=== PATIENT | male | born 1950 | race Caucasian/White ===

== ENCOUNTER 2020-10-30 10:51 | Outpatient (CLI) | payer MEDICARE, OTHER, SELFPAY ==
[2020-10-30 11:42] LABS: Hemoglobin A1C 5.7 % (<5.7)
[2020-10-30 11:55] LABS: Alanine Aminotransferase 25 U/L (4-50); Albumin Level 4.2 g/dL (3.5-5.1); Alkaline Phosphatase 59 U/L (38-126); Anion Gap 4 mmol/L (8-16); Aspartate Amino Transferase 27 U/L (17-59); Bilirubin,Total 0.9 mg/dL (0.2-1.3); Blood Urea Nitrogen 25 mg/dL (9-20); Calcium 9.4 mg/dL (8.4-10.2); Carbon Dioxide 30 mmol/L (22-30); Chloride 105 mmol/L (98-107); Cholesterol 199 mg/dL (0-200); Estimated Glomerular Filt Rate > 60; Glucose 114 mg/dL (75-110); HDL Direct 45 mg/dL; Potassium 4.6 mmol/L (3.4-5.0); Sodium 139 mmol/L (137-145); Triglycerides 183 mg/dL (<150)
[2020-10-30 12:06] LABS: LDL Cholesterol Direct 117 mg/dL
== END 2020-10-30 10:52 | disposition home or self-care (01) ==
PROVIDERS: PCP Internal Medicine; Visit Provider Physician Assistant
DX: E11.9 Type 2 diabetes mellitus without complications (principal)
CPT/HCPCS: 36415; 80053; 80061; 83036

== ENCOUNTER 2021-04-19 09:43 | Outpatient (CLI) | payer MEDICARE, OTHER, SELFPAY ==
[2021-04-19 10:02] LABS: Hematocrit 41.5 % (42.0-52.0); Hemoglobin 13.3 g/dL (14.0-18.0); Mean Corpuscular Hemoglobin 30.5 pg (26-34); Mean Corpuscular Volume 95.2 fl (80-100); Mean Platelet Volume 9.5 fl (7.4-10.4); Platelet Count Result 243 k/mm3 (150-375); Red Blood Count 4.36 M/mm3 (4.6-6.20); Red Cell Distribution Width 13.1 % (11.5-14.5); White Blood Count 5.9 K/mm3 (4.5-10.0)
[2021-04-19 10:14] LABS: Magnesium 1.7 mg/dL (1.6-2.3)
[2021-04-19 10:47] LABS: Prostate Specific Antigen 0.7 ng/mL (< OR = 4.0)
[2021-04-19 11:21] LABS: Folic Acid 11.4 ng/mL (2.76->20)
== END 2021-04-19 09:44 | disposition home or self-care (01) ==
PROVIDERS: PCP Physician Assistant; Visit Provider Physician Assistant
DX: R53.83 Other fatigue (principal); I10 Essential (primary) hypertension; Z12.5 Encounter for screening for malignant neoplasm of prostate
CPT/HCPCS: 36415; 82607; 82746; 83735; 84153; 84443; 85027; G0103

== ENCOUNTER → 2021-09-21 00:23 | Outpatient (CLI) | payer MEDICARE, OTHER, SELFPAY ==
[2021-09-22 16:52] LABS: SARS-CoV-2 RNA PCR Negative
== END ==
PROVIDERS: PCP Physician Assistant; Visit Provider Physician Assistant
DX: R09.89 Other specified symptoms and signs involving the circulatory and respiratory systems (principal); Z20.822 Contact with and (suspected) exposure to COVID-19
CPT/HCPCS: C9803; U0003; U0005

== ENCOUNTER 2022-04-24 08:40 | Outpatient (CLI) | payer MEDICARE, OTHER, SELFPAY ==
[2022-04-24 09:47] LABS: Hematocrit 42.8 % (42.0-52.0); Mean Corpuscular HGB Conc 32.7 g/dl (32-36); Mean Corpuscular Hemoglobin 31.3 pg (26-34); Mean Corpuscular Volume 95.5 fl (80-100); Mean Platelet Volume 9.5 fl (7.4-10.4); Platelet Count Result 275 k/mm3 (150-375); Red Blood Count 4.48 M/mm3 (4.6-6.20); Red Cell Distribution Width 13.6 % (11.5-14.5); White Blood Count 6.6 K/mm3 (4.5-10.0)
[2022-04-24 09:59] LABS: Hemoglobin A1C 5.7 % (<5.7)
[2022-04-24 10:02] LABS: Alanine Aminotransferase 24 U/L (6-50); Albumin Level 4.4 g/dL (3.5-5.1); Alkaline Phosphatase 69 U/L (38-126); Anion Gap 10 mmol/L (8-16); Aspartate Amino Transferase 24 U/L (17-59); Bilirubin,Total 0.9 mg/dL (0.2-1.3); Blood Urea Nitrogen 25 mg/dL (9-20); Calcium 9.3 mg/dL (8.4-10.2); Carbon Dioxide 24 mmol/L (22-30); Chloride 102 mmol/L (98-107); Cholesterol 183 mg/dL (0-200); Estimated Glomerular Filt Rate > 60; Glucose 119 mg/dL (65-110); HDL Direct 38 mg/dL; Potassium 4.4 mmol/L (3.4-5.0); Sodium 136 mmol/L (137-145); Triglycerides 225 mg/dL (<150)
[2022-04-24 10:14] LABS: LDL Cholesterol Direct 90 mg/dL
[2022-04-24 10:23] LABS: Creatinine Urine 187.8 mg/dL
[2022-04-24 10:28] LABS: Microalbumin Urine Random 16.9 mg/L (0-16.7)
[2022-04-24 10:33] LABS: Prostate Specific Antigen 0.8 ng/mL (< OR = 4.0)
[2022-04-24 11:08] LABS: Folic Acid 14.4 ng/mL (2.76->20)
== END 2022-04-24 08:41 | disposition home or self-care (01) ==
LOC: ANHLAB 08:42
PROVIDERS: PCP Physician Assistant; Visit Provider Physician Assistant
DX: Z12.5 Encounter for screening for malignant neoplasm of prostate (principal); E11.9 Type 2 diabetes mellitus without complications; R53.83 Other fatigue
CPT/HCPCS: 36415; 80053; 80061; 82043; 82607; 82746; 83036; 84153; 84443; 85027; G0103

== ENCOUNTER 2022-07-18 00:13 | Day surgery (SDC) | payer MEDICARE, OTHER, SELFPAY ==
[2022-07-04 13:51] VITALS: BMI 41.1
--- NOTE | 2022-07-18 06:17 | PM.HPGS ---
History of Present Illness History of Present Illness Consent: Risks, benefits, and alternatives have been discussed and questions answered. Patient agrees to proceed with procedure. Chief complaint: family hx of colon ca Narrative: Leo Miller is a 71 year old male For colon cancer screening. His father had colon cancer. Review of Systems Review of Systems: All systems reviewed & are unremarkable except as noted in HPI and below PMFSH Family History Family History Father Patient's father is Family history of renal cell carcinoma Sibling Carcinoma of colon Family history of renal cell carcinoma Mother Family history of malignant neoplasm of uterus Social History Social History Smoking packs per day: 1 Smoking cigarettes per day: 20.0 Years smoked: 37 Smoking pack-years: 37.00 Smoking status: Former smoker Tobacco type: cigarettes Second hand tobacco smoke exposure: No Alcohol intake: never Substance use type: does not use Living arrangements: with family Spiritual care concerns: No Meds Home Medications and Allergies Home Medications Medication Instructions Recorded Confirmed Type loratadine 10 mg tablet (Claritin) 10 mg PO DAILY 11/03/19 07/04/22 History lisinopril 20 mg tablet 20 mg PO DAILY #90 tabs 10/30/21 07/04/22 Rx metformin 500 mg tablet,extended 500 mg PO DAILY #90 tabs 10/30/21 07/04/22 Rx release 24 hr sertraline 50 mg tablet 50 mg PO DAILY #90 tabs 10/30/21 07/04/22 Rx atorvastatin 40 mg tablet 40 mg PO DAILY #90 tabs 05/02/22 07/04/22 Rx Allergies Allergy/AdvReac Type Severity Reaction Status Date / Time No Known Allergies Allergy Verified 07/18/22 06:22 Exam Const: General: alert Orientation/consciousness: patient oriented x3 Resp: Auscultation: clear to auscultation bilaterally Cardio: Rhythm: regular rhythm GI: GI Palp: Yes Soft to palpation and No Tenderness to palpation present (GI) Neuro: General: patient oriented x3 Assessment and Plan Assessment and plan (1) Colon cancer screening: Code(s): Z12.11 - Encounter for screening for malignant neoplasm of colon Status: Acute Assessment and Plan: Colonoscopy with possible biopsy or polypectomy or cautery or injection of substances.
[2022-07-18 06:23] VITALS: BP 152/78; PULSE 62; RESP 18; TEMP 36.3; O2SAT 99; BMI 39.8
[2022-07-18] MEDS: LACTATED RINGERS 1,000 ML 150 ML IV CONT (06:36)
[2022-07-18 06:42] LABS: Glucose Point of Care 107 mg/dl (65-105)
--- NOTE | 2022-07-18 07:17 | P.PNAN_ITS ---
Anes - Initial Pre Proc Eval Procedure: Operation Date: 07/18/22 07:30 Proposed Procedures p Screening Colonoscopy - Clif Peña MD Date/Time: 07/18/22 07:17 Surgeon: Clif Peña MD Pre Op Diagnosis: family hx of colon ca Patient Data Age: 71 Gender: M Height: 1.78 m Weight: 126 kg Last Vital Signs Temp 97.3 F L 07/18/22 06:23 Pulse 62 07/18/22 06:23 Resp 18 07/18/22 06:23 BP 152/78 H 07/18/22 06:23 Pulse Ox 99 07/18/22 06:23 O2 Del Method Room Air 07/18/22 06:23 Allergies Allergy/AdvReac Type Severity Reaction Status Date / Time No Known Allergies Allergy Verified 07/18/22 06:22 Home Medications Medication Instructions Recorded Confirmed Type loratadine 10 mg tablet (Claritin) 10 mg PO DAILY 11/03/19 07/04/22 History lisinopril 20 mg tablet 20 mg PO DAILY #90 tabs 10/30/21 07/04/22 Rx metformin 500 mg tablet,extended 500 mg PO DAILY #90 tabs 10/30/21 07/04/22 Rx release 24 hr sertraline 50 mg tablet 50 mg PO DAILY #90 tabs 10/30/21 07/04/22 Rx atorvastatin 40 mg tablet 40 mg PO DAILY #90 tabs 05/02/22 07/04/22 Rx Laboratory Tests 07/18/22 06:39 POC Capillary Glucose 107 mg/dl H mg/dl (65-105) Patient hx anesthesia problems: none Family hx anesthesia problems: none Results Review: All pre-operative results and documents have been reviewed as part of the pre- operative evaluation. [facility] Family History Family History Father Patient's father is Family history of renal cell carcinoma Sibling Carcinoma of colon Family history of renal cell carcinoma Mother Family history of malignant neoplasm of uterus Social History Social History Smoking packs per day: 1 Smoking cigarettes per day: 20.0 Years smoked: 37 Smoking pack-years: 37.00 Smoking status: Former smoker Tobacco type: cigarettes Second hand tobacco smoke exposure: No Alcohol intake: never Substance use type: does not use Living arrangements: with family Spiritual care concerns: No Anes - Eval Final PreProcedure Day of Procedure 07/18/22 07:17 Patient weight: morbidly obese Heart: regular rate and rhythm Lungs: clear to auscultation Airway: Mallampati scale class II Neurological: alert and oriented Last oral intake: >/= 8 hours ASA classification: III Emergent: no Anesthetic plan: proceed Anesthesia type and monitoring: general GIVS and standard monitoring Results Review: All pre-operative results and documents have been reviewed as part of the pre- operative evaluation. Informed Consent: The patient's anesthetic plan and its attendant risks and benefits were discussed with the patient/family/POA. Questions were solicited and answers provided to the satisfaction of the patient/family/POA.
[2022-07-18 07:47] VITALS: BP 101/63; PULSE 55; RESP 18; O2SAT 95
[2022-07-18 07:57] VITALS: BP 113/69; PULSE 52; RESP 15; O2SAT 96
[2022-07-18 08:07] VITALS: BP 139/72; PULSE 53; RESP 22; O2SAT 97
== END 2022-07-18 08:21 | disposition home or self-care (01) ==
PROVIDERS: PCP Physician Assistant; Visit Provider Internal Medicine Gastroenterology
PROC: 0DJD8ZZ Inspection of Lower Intestinal Tract, Via Natural or Artificial Opening Endoscopic (ICD-10-PCS; CPT 45378; principal; 2022-07-18 07:30)
DX: Z12.11 Encounter for screening for malignant neoplasm of colon (principal); K57.30 Diverticulosis of large intestine without perforation or abscess without bleeding; D12.3 Benign neoplasm of transverse colon; D12.5 Benign neoplasm of sigmoid colon; Z80.0 Family history of malignant neoplasm of digestive organs; Z79.84 Long term (current) use of oral hypoglycemic drugs; Z87.891 Personal history of nicotine dependence; E66.01 Morbid (severe) obesity due to excess calories; Z68.39 Body mass index [BMI] 39.0-39.9, adult
CPT/HCPCS: 45385; 82948; 88305; J2704; J7120

== ENCOUNTER 2023-05-01 10:18 | Outpatient (CLI) | payer MEDICARE, OTHER, SELFPAY ==
[2023-05-01 10:42] LABS: Basophils Percent Auto 0.5 % (0.2-1.2); Eosinophils Absolute Auto 0.1 K/mm3 (0-0.3); Hematocrit 42.9 % (42.0-52.0); Hemoglobin 13.9 g/dL (14.0-18.0); Immature Granulocyte Absolute 0.01 K/mm3 (0.00-0.031); Immature Granulocyte Percent A 0.2 % (0-0.5); Lymphocytes Absolute Auto 1.74 K/mm3 (0.9-3.2); Lymphocytes Percent Auto 29.5 % (18.3-44.2); Mean Corpuscular HGB Conc 32.4 g/dl (32-36); Mean Corpuscular Volume 95.5 fl (80-100); Mean Platelet Volume 9.4 fl (7.4-10.4); Monocytes Absolute Auto 0.6 K/mm3 (0.1-0.6); Neutrophils Absolute Auto 3.4 K/mm3 (1.3-6.7); Neutrophils Percent Auto 57.8 % (45.5-73.1); Platelet Count Result 249 k/mm3 (150-375); Red Blood Count 4.49 M/mm3 (4.6-6.20); Red Cell Distribution Width 13.1 % (11.5-14.5); White Blood Count 5.9 K/mm3 (4.5-10.0)
[2023-05-01 11:15] LABS: Alanine Aminotransferase 28 U/L (6-50); Albumin Level 4.4 g/dL (3.5-5.1); Alkaline Phosphatase 65 U/L (38-126); Anion Gap 7 mmol/L (8-16); Aspartate Amino Transferase 28 U/L (17-59); Bilirubin,Total 0.9 mg/dL (0.2-1.3); Blood Urea Nitrogen 25 mg/dL (9-20); Calcium 9.1 mg/dL (8.4-10.2); Carbon Dioxide 24 mmol/L (22-30); Chloride 106 mmol/L (98-107); Cholesterol 188 mg/dL (0-200); Estimated Glomerular Filt Rate > 60; Glucose 121 mg/dL (65-110); HDL Direct 38 mg/dL; Potassium 4.1 mmol/L (3.4-5.0); Sodium 137 mmol/L (137-145); Triglycerides 177 mg/dL (<150)
[2023-05-01 11:27] LABS: LDL Cholesterol Direct 108 mg/dL
[2023-05-01 11:43] LABS: Prostate Specific Antigen 0.7 ng/mL (< OR = 4.0)
[2023-05-01 12:18] LABS: Folic Acid 13.7 ng/mL (2.76->20)
[2023-05-01 12:29] LABS: MALB Creatinine Ratio 3.7 mg/g (0-30); Microalbumin Urine Random 6.9 mg/L (0-16.7)
== END 2023-05-01 10:19 | disposition home or self-care (01) ==
PROVIDERS: PCP Physician Assistant; Visit Provider Physician Assistant
DX: Z12.5 Encounter for screening for malignant neoplasm of prostate (principal); R53.83 Other fatigue; E11.9 Type 2 diabetes mellitus without complications
CPT/HCPCS: 36415; 80053; 80061; 82043; 82607; 82746; 83036; 84153; 84443; 85025; G0103

== ENCOUNTER 2024-05-04 11:12 | Outpatient (CLI) | payer MEDICARE, OTHER, SELFPAY ==
[2024-05-04 11:44] LABS: Basophils Percent Auto 0.7 % (0.2-1.2); Eosinophils Absolute Auto 0.1 K/mm3 (0-0.3); Eosinophils Percent Auto 1.6 % (0-4.4); Hematocrit 41.7 % (42.0-52.0); Hemoglobin 13.7 g/dL (14.0-18.0); Immature Granulocyte Absolute 0.02 K/mm3 (0.00-0.031); Immature Granulocyte Percent A 0.3 % (0-0.5); Lymphocytes Absolute Auto 1.82 K/mm3 (0.9-3.2); Lymphocytes Percent Auto 29.8 % (18.3-44.2); Mean Corpuscular HGB Conc 32.9 g/dl (32-36); Mean Corpuscular Hemoglobin 31.4 pg (26-34); Mean Corpuscular Volume 95.6 fl (80-100); Mean Platelet Volume 9.7 fl (7.4-10.4); Monocytes Absolute Auto 0.8 K/mm3 (0.1-0.6); Monocytes Percent Auto 12.6 % (2.6-8.5); Neutrophils Absolute Auto 3.4 K/mm3 (1.3-6.7); Platelet Count Result 244 k/mm3 (150-375); Red Blood Count 4.36 M/mm3 (4.6-6.20); Red Cell Distribution Width 13.1 % (11.5-14.5); White Blood Count 6.1 K/mm3 (4.5-10.0)
[2024-05-04 11:56] LABS: Alanine Aminotransferase 24 U/L (6-50); Albumin Level 4.3 g/dL (3.5-5.1); Alkaline Phosphatase 66 U/L (38-126); Anion Gap 9 mmol/L (4-12); Aspartate Amino Transferase 25 U/L (17-59); Bilirubin,Total 0.7 mg/dL (0.2-1.3); Blood Urea Nitrogen 21 mg/dL (9-20); Calcium 9.2 mg/dL (8.4-10.2); Carbon Dioxide 25 mmol/L (22-30); Chloride 103 mmol/L (98-107); Cholesterol 173 mg/dL (0-200); Estimated Glomerular Filt Rate > 60; Glucose 115 mg/dL (65-110); HDL Direct 40 mg/dL; Potassium 4.6 mmol/L (3.4-5.0); Sodium 137 mmol/L (137-145); Triglycerides 207 mg/dL (<150)
[2024-05-04 12:08] LABS: LDL Cholesterol Direct 83 mg/dL
[2024-05-04 12:19] LABS: Hemoglobin A1C 6.4 % (<5.7)
[2024-05-04 12:28] LABS: Prostate Specific Antigen 1.2 ng/mL (< OR = 4.0)
[2024-05-04 12:37] LABS: Creatinine Urine 115.8 mg/dL
[2024-05-04 13:04] LABS: Folic Acid 12.3 ng/mL (2.76->20)
[2024-05-04 13:19] LABS: MALB Creatinine Ratio < 5.2 mg/g (0-30); Microalbumin Urine Random < 6.0 mg/L (0-16.7)
== END 2024-05-04 11:13 | disposition home or self-care (01) ==
PROVIDERS: PCP Nurse Practitioner; Visit Provider Physician Assistant
DX: Z12.5 Encounter for screening for malignant neoplasm of prostate (principal); E11.9 Type 2 diabetes mellitus without complications; R53.83 Other fatigue
CPT/HCPCS: 36415; 80053; 80061; 82043; 82607; 82746; 83036; 84153; 84443; 85025; G0103

== ENCOUNTER 2024-12-14 09:38 | Outpatient (CLI) | payer MEDICARE, OTHER, SELFPAY ==
[2024-12-14 10:31] LABS: Alanine Aminotransferase 23 U/L (6-50); Albumin Level 4.2 g/dL (3.5-5.1); Alkaline Phosphatase 71 U/L (38-126); Anion Gap 9 mmol/L (4-12); Aspartate Amino Transferase 22 U/L (17-59); Bilirubin,Total 0.8 mg/dL (0.2-1.3); Blood Urea Nitrogen 26 mg/dL (9-20); Calcium 9.1 mg/dL (8.4-10.2); Carbon Dioxide 24 mmol/L (22-30); Chloride 107 mmol/L (98-107); Cholesterol 179 mg/dL (0-200); Estimated Glomerular Filt Rate > 60; Glucose 130 mg/dL (65-110); HDL Direct 43 mg/dL; Potassium 4.4 mmol/L (3.4-5.0); Sodium 140 mmol/L (137-145); Triglycerides 180 mg/dL (<150)
[2024-12-14 10:42] LABS: LDL Cholesterol Direct 90 mg/dL
--- OUTSIDE RECORDS SUMMARY | 2024-12-14 10:53 | XMS_ITS | Continuity of Care Document ---
Author Name [facility] Organization [facility] Care Team Providers Care Arc Furnace Operator Name Role Phone [facility] Unavailable Unavailable Medications Combined list of outpatient medications from Department of Defense and Veterans Affairs facilities.Medications provided include 1) outpatient medications from the last 15 months, and 2) patient-reported medications. Medication Details Route Status Patient Instructions Prescription Expires Prescription Number Last Dispense Date Ordering Provider Order Date Order Qty Source atorvastati n 40 mg tablet 40 mg, Oral, Daily, # 90 EA, 3 total refill(s ), Hard Stop Oral (given by mouth) Ordered 07/16/2025 5 2024 90.0 Ambulat ory Pharmac y atorvastati n 40 mg tablet See Instruct bety, # 90 EA, 3 total refill(s ), Hard Stop Complet ed 05/28/2024 4 2023 90.0 Ambulat ory Pharmac y betamethaso ne-clotrima zole 0.05%-1% cream [45g] See Instruct bety, # 45 g, 0 total refill(s ), Hard Stop Complet ed 08/28/2024 3 2023 45.0 Ambulat ory Pharmac y celecoxib 200 mg capsule See Instruct bety, # 30 EA, 0 total refill(s ), Hard Stop Complet ed 04/06/2024 3 2023 30.0 Ambulat ory Pharmac y lisinopril 20 mg tablet 20 mg, Oral, Daily, # 90 EA, 3 total refill(s ), Hard Stop Oral (given by mouth) Ordered 05/31/2025 5 2024 90.0 Ambulat ory Pharmac y lisinopril 20 mg tablet 20 mg, # 90 EA, 3 total refill(s ), Hard Stop Complet ed 05/28/2024 4 2023 90.0 Ambulat ory Pharmac y metFORMIN XR 500 mg/24 hour tablet 500 mg, Oral, BID, # 180 EA, 2 total refill(s ), Hard Stop Oral (given by mouth) Ordered 05/28/2025 5 2024 180.0 Ambulat ory Pharmac y metFORMIN XR 500 mg/24 hour tablet See Instruct ions, # 90 EA, 3 total refill(s ), Hard Stop Complet ed 05/28/2024 4 2023 90.0 Ambulat ory Pharmac y sertraline 50 mg tablet 50 mg, Oral, Daily, # 90 EA, 3 total refill(s ), Soft Stop Oral (given by mouth) Ordered 5 2024 90.0 Ambulat ory Pharmac y sertraline 50 mg tablet See dose instruct ions in comments , # 90 EA, 3 total refill(s ), Acute Complet ed 12/01/2023 3 2023 90.0 Ambulat ory Pharmac y sertraline 50 mg tablet 50 mg, Oral, Daily, # 90 EA, 3 total refill(s ), Hard Stop Oral (given by mouth) Discont inued 11/18/2024 4 2024 90.0 Ambulat ory Pharmac y Allergies, Adverse Reactions, Alerts Combined list of allergies from Department of Defense and Veterans Affairs facilities. It does not include entries that were removed or entered in error. Substance Category Reaction Severity Reaction type Status Date Reported Comments Source NO KNOWN ALLERGIES Propensity to adverse reactions to drug Active Unknown Organization Immunizations Combined list of available immunizations from the Department of Defense and Veterans Affairs facilities. Immunization Series Date Given Administered By Site Reaction Lot Number CVX Code Drug Linen Room Worker Status Comments Source COVID Vaccine Pfizer 2020 DARLENERBRUNN ER 208 complet ed Result Comment: Unit: Unknown Manufactu rer: Pfizer Manufactu ring [place] (PFR) Ambulat ory Pharmac y zoster vaccine, inactivated 2019 DARLENERBRUNN ER 187 complet ed Result Comment: Unit: Unknown Manufactu rer: () Ambulat ory Pharmac y influenza virus vaccine, inactivated 2019 DARLENERBRUNN ER 88 complet ed Result Comment: Unit: Unknown Manufactu rer: () Ambulat ory Pharmac y zoster vaccine, inactivated 2019 NNER 187 complet ed Result Comment: Unit: Unknown Manufactu rer: () Ambulat ory Pharmac y tetanus, diphtheria, acellular pertu is 2018 NNER 115 complet ed Result Comment: Unit: Unknown Manufactu rer: () Ambulat ory Pharmac y influenza, seasonal,high dose-pf 2018 135 sanofi pasteur complet ed influenza , seasonal, high dose-pf 06/16/19 Given Ambulat ory Pharmac y pneumococcal polysaccharid e, 23 valent 2017 NNER 33 complet ed Result Comment: Unit: Unknown Manufactu rer: () Ambulat ory Pharmac y influenza, seasonal,high dose-pf 2017 135 sanofi pasteur complet ed influenza , seasonal, high dose-pf 06/02/18 Given Ambulat ory Pharmac y influenza, seasonal,high dose-pf 2016 NNER 135 complet ed Result Comment: Unit: Unknown Manufactu rer: () Ambulat ory Pharmac y pneumococcal 13-valent conjugate (PCV13) 2016 TRANSCR IBED 133 complet ed pneumococ salvatore 13-valent conjugate (PCV13) 04/04/17 Given Ambulat ory Pharmac y influenza, seasonal,high dose-pf 2015 SON 135 complet ed Result Comment: Unit: Unknown Manufactu rer: () Ambulat ory Pharmac y influenza, injectable, quadrivalent- pf 2014 150 sanofi pasteur complet ed influenza , injectabl e, quadrival ent-pf 06/19/15 Given Ambulat ory Pharmac y zoster vaccine live 2010 zzRig ht Arm [id number] [employer] complet ed zoster vaccine live 02/05/11 Given Ambulat ory Pharmac y tetanus, diphtheria, acellular pertu is 2008 zzRig ht Arm [id number] 115 [employer] or complet ed tetanus, diphtheri a, acellular pertussis 05/15/09 Given Ambulat ory Pharmac y hepatitis A adult vaccine 1997 [id number] [employer] complet ed hepatitis A adult vaccine 07/10/98 Given Ambulat ory Pharmac y influenza virus vaccine, whole virus [id number] [employer] complet ed influenza virus vaccine, whole virus 07/10/98 Given Ambulat ory Pharmac y measles/mumps /rubella virus vaccine 1997 [id number] [employer] complet ed measles/m umps/rube lla virus vaccine 07/10/98 Given Ambulat ory Pharmac y influenza virus vaccine, whole virus 1996 [id number] [employer] complet ed influenza virus vaccine, whole virus 08/15/97 Given Ambulat ory Pharmac y tetanus-dipht h toxoids (Td) adult/adol 1996 [id number] [employer] complet ed tetanus-d iphth toxoids (Td) adult/ado l 08/15/97 Given Ambulat ory Pharmac y hepatitis A adult vaccine 1996 [id number] 52 [employer] ne complet ed hepatitis A adult vaccine 08/15/97 Given Ambulat ory Pharmac y tuberculin purified protein derivative [id number] Tanika Leonel complet ed Patient Tolerance : Negative Ambulat ory Pharmac y poliovirus vaccine, live, oral 1974 02 complet ed polioviru s vaccine, live, oral 07/26/75 Given Ambulat ory Pharmac y Encounters Combined list of: 1) Encounters from Department of Veterans Affairs facilities going backup to the last 18 months, not all VA inpatient encounters are included; 2) Encounters from the Department of Defense facilities going backup to 280 months. Location Location Details Encounter Type Encounter Number Reason For Visit Attending Provider ADM Date DC Date Status Disposition Source [facility] Between Visit [id number] 05/31 Discharge Disposition: Home or Self Care 0055[facility] Between Visit [id number] 06/01 Discharge Disposition: Home or Self Care 0055C[facility] Between Visit [id number] 07/14 Discharge Disposition: Home or Self Care 0055[facility] Between Visit [id number] 07/19 Discharge Disposition: Home or Self Care 5C-3 michelle Montiel Procedures Combined list of: 1) Procedures from Department of Veterans Affairs facilities going back up to thelast 18 months, not all [place] non-surgical procedures are included; 2) All procedures from the Department of Defense facilities. Procedure Procedure Type Code Date Perfomer Comments Sourc e No data available for this section Ambulatory P harmacy Assessment and Plan Combined list of future care activities from Department of Defense and Veterans [facility] facilities (e.g., assessment and plan notes, appointments, orders, and referrals). Additional future care activities may be listed in the Plan of Care section. Result Assessment and Plan Date Source Assessment and Plan No data available for this section 12/14/2024 Ambulatory Pharmacy Functional Status Combined list of recent functional and cognitive assessments recorded at Department of Defense and Veterans Affairs ([place]VA Functional [place] Measurement (FIM) Scale: 1 = Total Assistance (Subject = 0% +), 2 = Maximal Assistance (Subject = 25% +), 3 = Moderate Assistance (Subject = 50% +), 4 = Minimal Assistance (Subject = 75% +), 5 = Supervision, 6 = Modified [place] (Device), 7 = Complete [place] (Timely, Safely). Assessment Date/Time Source Assessment Type Assessment Skill Assessment Score Assessment Details No data available for this section
--- OUTSIDE RECORDS SUMMARY | 2024-12-14 10:53 | XMS_ITS | Clinical Summary ---
Author Organization [facility] Address [address] [place] [address] Care Team Providers Care Welder Fitter Gas Name Role Phone Sidney Loza Primary Care Provider Allergies No known active allergies Medications atorvastatin (LIPITOR) 40 mg tablet Take 40 mg by mouth daily 2 Active lisinopriL (PRINIVIL,ZESTR IL) 20 mg tablet Take 20 mg by mouth daily 2 Active metFORMIN XR (GLUCOPHAGE XR) 500 mg 24 hr tablet Take 500 mg by mouth daily with breakfast 2 Active sertraline (ZOLOFT) 50 mg tablet Take 50 mg by mouth daily 2 Active loratadine (CLARITIN) 10 mg tablet Take 10 mg by mouth daily Active Active Problems No known active problems Immunizations Immunization Administration Dates Next Due Influenza, Quad, Adjuvantated, Intramuscular 09/2020 Influenza, Quadrivalent, Rec ombinant, Egg Free, Preservative Free, Intramuscular 06/30/2020 Influenza, Quadrivalent, Split, Intramuscular Influenza, Trivalent, High D ose, Split, Preservative Free, Intramuscular 06/16/2019,06/20/2017 Pneumococcal Conjugate PCV 13 04/04/2017 Pneumococcal Polysaccharide PPV23 07/03/2018 Tdap 07/22/2019 ZOSTER Recombinant 08/23/2020,06/06/2020 Medical History Medical History Date Comments Hypertension Hypercholesteremia Pre-diabetes Family History Medical History Relation Name Comments Colon cancer Brother 1 BRCA1 or BRCA2 Positive Brother 2 unkn own which gene Kidney cancer Brother 2 MUTYH Positive (heterozygous) Brother 2 carrier for MAP No Known Problems Daughter 1 Jocelyn No Known Problems Daughter 2 Marcia Kidney cancer Father Lung cancer Father Melanoma Father Breast cancer Mother Ovarian cancer Mother Ovarian cancer Mother's Sister BRCA1 or BRCA2 Positive Niece unkn own which gene MUTYH Positive (heterozygous) Niece carrier for MAP Colon cancer Sister COD at 52 No Known Problems Son 1 Tino No Known Problems Son 2 Alfredo Relation Name Status Comments Brother 1 Alive Brother 2 Alive Daughter 1 Jocelyn Alive Daughter 2 Marcia Alive Father Mother Mother's Sister Alive Niece Alive Sister Son 1 Tino Alive Son 2 Alfredo Alive Social History Tobacco Use Types Packs/Day Years Used Date Smoking Tobacco: Never Smokeless Tobacco: Never Personal Safety Answer Date Recorded Getting School Help Needed Not on file 12/06 Sex and Gender Information Value Date Recorded Sex Assigned at Not on file 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 Gender Identity Not on file Sexual Orientation Not on file Obstetrics History Plan of Treatment Health Maintenance Due Date Last Done Comments Colon Cancer Screening-Colonoscopy 1950 Depression Screening 1950 Fall Risk Assessment 1950 Hepatitis C Screening 1950 Hepatitis B Screening 1968 Abdominal Aortic Aneurysm (A AA) Screen 12/12/2015 Well Visit 65+ 12/12/2015 Covid-19 Vaccine (2023-2 5 season) 2024 01/07/2022, 07/23/2021, 12/05/2020, Additional history exists Influenza Vaccine (#1) 2024 , 06/30/2020, 06/16/2019, Additional history exists DTaP/Tdap/Td Vaccine (2 - Td or Tdap) 07/22/2029 07/22/2019 Pneumococcal vaccine 65+ Completed 07/03/2018, 03/22 Zoster Vaccine Completed 08/23/2020, 06/06/2020 Insurance MEDICARE FOR LIFE Care Teams Welder Fitter Gas Relationship Specialty Start Date End Date Sidney Loza PA [address] [place] [address] PCP - General Physician Wireworker Supervisor 10/31/21
--- OUTSIDE RECORDS SUMMARY | 2024-12-14 10:53 | XMS_ITS | Clinical Summary ---
Author Organization [facility] Address [address] [place] [address] Care Team Providers Care Medical Instrument Cable Fabricator Name Role Phone Phoeberyan Ameena May ABDI Primary Care Provider [phone] Social History Tobacco Use Types Packs/Day Years Used Date Smoking Tobacco: Never Assessed Sex and Gender Information Value Date Recorded Sex Assigned at Not on file Legal Sex Male 4:58 PM CDT Gender Identity Not on file Sexual Orientation Not on file Plan of Treatment Health Maintenance Due Date Last Done Comments Colorectal Cancer Screening Colonoscopy (10 Years) 1950 Hepatitis C 1968 DTaP, Tdap and Td Vaccines ( 1 - Tdap) 1969 Zoster Vaccines (1 of 2) 2000 Annual Medicare Wellness Visit 12/12/2015 Pneumococcal Vaccine: 65+ Ye ars (1 of 1 - PCV) 12/12/2015 COVID-19 Vaccine ( - 2023-2 5 season) 2024 Influenza Adult (#1) 2024 RSV Immunization or 60+ Years (1 - 1-dose 75+ series) 2025 Meningococcal B Vaccine Aged Out No l onger eligible based on patient's age to complete this topic Meningococcal Vaccine Aged Out No valente edd eligible based on patient's age to complete this topic RSV Immunizations Under 20 Months Aged Out No longer eligible based on patient's age to complete this topic Insurance MEDICARE [facility] Codesign Cooperative Care Teams Medical Instrument Cable Fabricator Relationship Specialty Start Date End Date Ameena Parra DO [address] [address] PCP - General FAMILY PRACTICE 09/03/18
--- OUTSIDE RECORDS SUMMARY | 2024-12-14 10:53 | XMS_ITS | Referral Summary ---
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
[2024-12-14 14:44] LABS: Hemoglobin A1C 5.9 % (<5.7)
== END 2024-12-14 09:39 | disposition home or self-care (01) ==
PROVIDERS: PCP Internal Medicine; Visit Provider Internal Medicine
DX: R73.03 Prediabetes (principal); I10 Essential (primary) hypertension; E78.5 Hyperlipidemia, unspecified
CPT/HCPCS: 36415; 80053; 80061; 83036

== ENCOUNTER 2025-06-22 13:05 | Outpatient (CLI) | payer MEDICARE, OTHER, SELFPAY ==
--- OUTSIDE RECORDS SUMMARY | 2025-06-22 13:11 | XMS_ITS | Clinical Summary ---
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 Gender Identity Not on file Sexual Orientation Not on file Obstetrics History Plan of Treatment Health Maintenance Due Date Last Done Comments Colon Cancer Screening-Colonoscopy 1950 Depression Screening 1950 Fall Risk Assessment 1950 Hepatitis C Screening 1950 Hepatitis B Screening 1968 Abdominal Aortic Aneurysm (A AA) Screen 12/12/2015 Well Visit 65+ 12/12/2015 Covid-19 Vaccine (2024-2 6 season) 2025 01/07/2022, 07/23/2021, 12/05/2020, Additional history exists Influenza Vaccine (#1) 2025 , 06/30/2020, 06/16/2019, Additional history exists DTaP/Tdap/Td Vaccine (2 - Td or Tdap) 07/22/2029 07/22/2019 Pneumococcal vaccine 65+ Completed 07/03/2018, 03/22 Zoster Vaccine Completed 08/23/2020, 06/06/2020 Insurance MEDICARE FOR LIFE Care Teams Top Polisher Relationship Specialty Start Date End Date Sidney Loza PA [address] [place] [address] PCP - General Physician Mule Packer 10/31/21
--- OUTSIDE RECORDS SUMMARY | 2025-06-22 13:11 | XMS_ITS | Clinical Summary ---
Author Organization [facility] Address [address] [place] [address] Care Team Providers Care Research Associate Molecular Biology Name Role Phone Ameena Parra May ABDI Primary Care Provider [phone] Social History Tobacco Use Types Packs/Day Years [...] Td Vaccines ( 1 - Tdap) 1969 Pneumococcal Vaccine: 50+ Ye ars (1 of 1 - PCV) 2000 Zoster Vaccines (1 of 2) 2000 Annual Medicare Wellness Visit 12/12/2015 COVID-19 Vaccine (2023-2 5 season) 2025 RSV Immunization or 60+ Years (1 - [...] age to complete this topic Insurance MEDICARE [facility] Care Teams Research Associate Molecular Biology Relationship Specialty Start Date End Date Ameena Parra DO [address] [address] PCP - General FAMILY PRACTICE 09/03/18
[2025-06-22 13:59] LABS: Hematocrit 43.3 % (42.0-52.0); Hemoglobin 14.1 g/dL (14.0-18.0); Immature Granulocyte Percent A 0.3 % (0-0.5); Lymphocytes Absolute Auto 2.17 K/mm3 (0.9-3.2); Mean Corpuscular HGB Conc 32.6 g/dl (32-36); Mean Corpuscular Hemoglobin 31.7 pg (26-34); Mean Corpuscular Volume 97.3 fl (80-100); Nucleated Red Blood Cells Absolute Auto 0.000 K/mm3 (0.0-0.012); Nucleated Red Blood Cells Perc 0.0 % (0.0-0.2); Platelet Count Result 238 k/mm3 (150-375); Red Blood Count 4.45 M/mm3 (4.6-6.20); White Blood Count 7.9 K/mm3 (4.5-10.0)
[2025-06-22 15:43] LABS: Alanine Aminotransferase 30 U/L (6-50); Albumin Level 4.2 g/dL (3.5-5.1); Alkaline Phosphatase 63 U/L (38-126); Anion Gap 8 mmol/L (4-12); Aspartate Amino Transferase 31 U/L (17-59); Bilirubin,Total 0.8 mg/dL (0.2-1.3); Blood Urea Nitrogen 21 mg/dL (9-20); Calcium 9.0 mg/dL (8.4-10.2); Carbon Dioxide 23 mmol/L (22-30); Chloride 105 mmol/L (98-107); Cholesterol 173 mg/dL (0-200); Estimated Glomerular Filt Rate > 60; Glucose 107 mg/dL (65-110); HDL Direct 38 mg/dL; Potassium 4.5 mmol/L (3.4-5.0); Sodium 136 mmol/L (137-145); Total Protein 7.7 g/dL (6.3-8.2); Triglycerides 269 mg/dL (<150)
[2025-06-22 15:56] LABS: Hemoglobin A1C 6.0 % (<5.7)
[2025-06-22 16:25] LABS: Prostate Specific Antigen 1.4 ng/mL (< OR = 4.0)
== END 2025-06-22 13:06 | disposition home or self-care (01) ==
PROVIDERS: PCP Internal Medicine; Visit Provider Internal Medicine
DX: R73.03 Prediabetes (principal); E78.5 Hyperlipidemia, unspecified; I10 Essential (primary) hypertension; Z12.5 Encounter for screening for malignant neoplasm of prostate
CPT/HCPCS: 36415; 80053; 80061; 83036; 84153; 85025; G0103